=== PATIENT | female | born 1940 | race Caucasian/White ===

== ENCOUNTER 2020-03-25 11:50 | Inpatient (IN) | payer MEDICARE ==
[~2020-03-25] VITALS: Ht 162.6 cm; Wt 63.6 kg
[~2020-03-25 11:50] MED LIST: HYDR500C2 PO; LOSA50TA64 PO; ONDA4TAB59 PO; SITA1TAB2 PO; SITA1TAB6 PO; ZOC40T PO
--- NOTE | 2020-03-25 12:02 | NUR ---
STROKE RN BYRON AT BEDSIDE, PATIENT TO CT AT THIS TIME.
[2020-03-25 12:10] LABS: BASOPHILS # (AUTO) 0.1 X10'3 (0-0.2); BASOPHILS % (AUTO) 0.9 % (0-1); EOSINOPHILS # (AUTO) 0.1 X10'3 (0-0.9); HEMATOCRIT 44.5 % (35.0-45.0); HEMOGLOBIN 13.9 g/dl (12.0-16.0); LYMPHOCYTES # (AUTO) 1.1 X10'3 (1.1-4.8); LYMPHOCYTES % (AUTO) 17.2 % (21-51); MEAN CORPUSCULAR HEMOGLOBIN 26.9 PG (27.0-31.0); MEAN CORPUSCULAR HGB CONC 31.3 g/dL (33.0-36.5); MEAN CORPUSCULAR VOLUME 85.9 FL (78-98); MEAN PLATELET VOLUME 7.8 FL (7.4-10.4); MONOCYTES # (AUTO) 0.3 X10'3 (0-0.9); MONOCYTES % (AUTO) 4.2 % (2-12); NEUTROPHILS # (AUTO) 4.9 X10'3 (1.8-7.7); NEUTROPHILS % (AUTO) 76.7 % (42-75); PLATELET COUNT 261 X10'3 (140-440); RED BLOOD COUNT 5.17 X10'6 (4.20-5.60); RED CELL DISTRIBUTION WIDTH 19.9 % (11.5-14.5); WHITE BLOOD COUNT 6.4 X10'3 (4.5-11.0)
[2020-03-25 12:22] LABS: PARTIAL THROMBOPLASTIN TIME 30 SECONDS (22-32)
[2020-03-25 12:23] LABS: ALANINE AMINOTRANSFERASE 14 U/L (12-78); ALBUMIN 4.1 G/DL (3.4-5.0); ALBUMIN/GLOBULIN RATIO 1.2 (1.1-1.5); ALKALINE PHOSPHATASE 60 IU/L (46-116); ANION GAP 12 (8-16); ASPARTATE AMINO TRANSFERASE 19 U/L (10-37); BILIRUBIN,TOTAL 0.6 MG/DL (0.1-1.0); BLOOD UREA NITROGEN 24 MG/DL (7-18); BUN/CREATININE RATIO 21.6 (6.6-38.0); CALCIUM 8.8 MG/DL (8.5-10.1); CHLORIDE 105 MMOL/L (99-107); CREATININE 1.11 MG/DL (0.40-0.90); GLUCOSE 193 MG/DL (70-104); POTASSIUM 4.1 MMOL/L (3.5-5.1); SODIUM 141 MMOL/L (135-145); TOTAL CARBON DIOXIDE 23.6 MMOL/L (24-32); TOTAL PROTEIN 7.6 G/DL (6.4-8.2); eGFR 47 ML/MIN
[2020-03-25 12:26] LABS: TROPONIN I < 0.04 NG/ML (0.0-0.05)
[2020-03-25 12:42] LABS: ANISOCYTOSIS 2+; PLATELET ESTIMATE NORMAL
[2020-03-25] MEDS ORDERED: bisacodyl 10mg suppository rectal RC PRN (13:05)
[2020-03-25] MEDS ORDERED: magnesium Cl slow-release 64mg tablet PO PRN (13:05)
[2020-03-25] MEDS ORDERED: magnesium 2GM in 50ml NS 50 ML IV PRN (13:05)
[2020-03-25] MEDS ORDERED: HYDROcodone/acetaminophen 5mg/325mg tablet PO PRN (13:05)
[2020-03-25] MEDS ORDERED: magnesium 4gm in 100ml NS 100 ML IV PRN (13:05)
[2020-03-25] MEDS ORDERED: potassium CL 10mEq/100ml bag 100 ML IV PRN ×2 (13:05)
[2020-03-25] MEDS ORDERED: acetaminophen 650mg rectal suppository RC PRN (13:05)
[2020-03-25] MEDS ORDERED: acetaminophen 325mg tablet PO PRN ×2 (13:05)
[2020-03-25] MEDS ORDERED: aspirin 325mg tablet PO ONE (13:05)
[2020-03-25] MEDS ORDERED: ondansetron/PF 4mg/2ml inj IV PRN (13:05)
[2020-03-25] MEDS ORDERED: magnesium hydroxide 30ml (MOM) UD suspension PO PRN (13:05)
[2020-03-25] MEDS ORDERED: potassium Cl 20 mEq SR tablet PO PRN ×2 (13:05)
[2020-03-25] MEDS ORDERED: HYDROcodone/acetaminophen 10/325mg tab PO PRN (13:05)
[2020-03-25] MEDS ORDERED: mag hydrox/Alum hydrox/simeth 30ml oral suspension PO PRN (13:05)
[2020-03-25] MEDS ORDERED: metoclopramide 5 mg/ml inj IV PRN (13:05)
[2020-03-25] MEDS ORDERED: METF-438 PO (13:32)
[2020-03-25] MEDS ORDERED: HYDR25TA4 PO (13:32)
[2020-03-25] MEDS ORDERED: EMPA25TA PO (13:36)
[2020-03-25] MEDS ORDERED: GABA300C PO (13:37)
[2020-03-25] MEDS ORDERED: HYDR500C18 PO (13:39)
[2020-03-25] MEDS ORDERED: SERT50TA10 PO (13:41)
[2020-03-25] MEDS ORDERED: LANTUS SQ (13:42)
[2020-03-25] MEDS ORDERED: iohexol 350MG/ML 100ml bottle IV ONE (13:55)
[2020-03-25 14:12] LABS: HEMOGLOBIN A1C 6.9 % (4.5-6.2)
[2020-03-25 14:24] LABS: C-REACTIVE PROTEIN < 0.05 MG/DL (0.0-0.5)
[2020-03-25] MEDS: normal saline 1000ml 1,000 ML IV SCH (15:15)
[2020-03-25 15:23] VITALS: BP 156/74
--- NOTE | 2020-03-25 15:39 | NUR ---
pr arrived to 4009A from ER. VSS, pt connected to tele monitor. Pt denies pain. Right sided weakness noted. pt seen by Dr. Armando at bedside assessing pt. a/ox3.
[2020-03-25 18:00] VITALS: BP 143/70
[2020-03-25] MEDS: K and/or MAG REPLACEMENT MC SCH (19:13)
[2020-03-25] MEDS: gabapentin 300mg capsule PO SCH (20:24)
[2020-03-25] MEDS: sertraline 50mg tablet PO SCH (20:24)
[2020-03-25] MEDS ORDERED: temazepam 15mg capsule PO PRN (21:00)
[2020-03-25] MEDS ORDERED: atorvastatin 20mg tablet PO SCH (21:00)
[2020-03-25 22:00] VITALS: BP_SYST 112; BP_SYST 130; BP_DIAS 57; BP_DIAS 65
--- NOTE | 2020-03-25 22:19 | NUR ---
PT HAS NOTABLE RIGHT SIDE NEGLECT. SHE WAS HOLDING HER WATER AND POURING IT IN THE BED, WITHOUT NOTICE. SHE ALSO WAS UNABLE TO DISTINGUISH HER RIGHT HAND WHEN TAKING HER MEDICATIONS. SHE WAS HOLDING HER WATER IN HER RIGHT HAND AND ASKED ME FOR HER WATER.
[2020-03-26 02:00] VITALS: BP 139/58
[2020-03-26 06:00] VITALS: BP 137/61
[2020-03-26 06:30] LABS: BASOPHILS % (AUTO) 0.7 % (0-1); EOSINOPHILS # (AUTO) 0.1 X10'3 (0-0.9); EOSINOPHILS % (AUTO) 1.6 % (0-6); HEMATOCRIT 42.5 % (35.0-45.0); HEMOGLOBIN 13.3 g/dl (12.0-16.0); LYMPHOCYTES % (AUTO) 15.7 % (21-51); MEAN CORPUSCULAR HGB CONC 31.3 g/dL (33.0-36.5); MEAN CORPUSCULAR VOLUME 86.3 FL (78-98); MEAN PLATELET VOLUME 7.8 FL (7.4-10.4); MONOCYTES # (AUTO) 0.4 X10'3 (0-0.9); MONOCYTES % (AUTO) 6.6 % (2-12); NEUTROPHILS # (AUTO) 4.8 X10'3 (1.8-7.7); NEUTROPHILS % (AUTO) 75.4 % (42-75); PLATELET COUNT 218 X10'3 (140-440); RED BLOOD COUNT 4.92 X10'6 (4.20-5.60); RED CELL DISTRIBUTION WIDTH 20.7 % (11.5-14.5); WHITE BLOOD COUNT 6.4 X10'3 (4.5-11.0)
--- NOTE | 2020-03-26 06:36 | NUR ---
REPORT GIVEN TO RAVIN BERGMAN.
[2020-03-26 06:45] LABS: ALANINE AMINOTRANSFERASE 16 U/L (12-78); ALBUMIN 3.6 G/DL (3.4-5.0); ALBUMIN/GLOBULIN RATIO 1.1 (1.1-1.5); ALKALINE PHOSPHATASE 56 IU/L (46-116); ANION GAP 12 (8-16); ASPARTATE AMINO TRANSFERASE 17 U/L (10-37); BILIRUBIN,TOTAL 0.5 MG/DL (0.1-1.0); BLOOD UREA NITROGEN 18 MG/DL (7-18); BUN/CREATININE RATIO 20.2 (6.6-38.0); CALCIUM 8.7 MG/DL (8.5-10.1); CHLORIDE 108 MMOL/L (99-107); CHOL/HDL RATIO 4.1 (0.00-4.99); CHOLESTEROL 147 MG/DL (0-200); CREATININE 0.89 MG/DL (0.40-0.90); GLUCOSE 163 MG/DL (70-104); HDL CHOLESTEROL 36 MG/DL (35-60); LDL CHOLESTEROL 89 MG/DL (50-100); MAGNESIUM 2.1 MG/DL (1.5-2.4); SODIUM 143 MMOL/L (135-145); TOTAL CARBON DIOXIDE 22.9 MMOL/L (24-32); TOTAL PROTEIN 6.8 G/DL (6.4-8.2); TRIGLYCERIDES 163 MG/DL (20-135); eGFR 61 ML/MIN
[2020-03-26] MEDS: K and/or MAG REPLACEMENT MC SCH ×2 (08:00→19:28)
[2020-03-26] MEDS: gabapentin 300mg capsule PO SCH ×2 (08:19→20:08)
[2020-03-26] MEDS: aspirin 81mg tablet.DR PO SCH (08:20)
[2020-03-26] MEDS: Empagliflozin (Jardiance) 25 MG TAB PO SCH (08:22)
[2020-03-26] MEDS: enoxaparin 40mg/0.4ml syringe SQ SCH (08:25)
[2020-03-26 10:00] VITALS: BP 136/57
[2020-03-26 14:00] VITALS: BP 126/72
[2020-03-26] MEDS: clopidogrel 75mg tablet PO SCH (17:52)
[2020-03-26 18:00] VITALS: BP 154/71
--- NOTE | 2020-03-26 18:29 | NUR ---
Report to Gretel ALICIA
[2020-03-26] MEDS: normal saline 1000ml 1,000 ML IV SCH ×2 (19:13→19:14)
[2020-03-26] MEDS: sertraline 50mg tablet PO SCH (20:08)
[2020-03-26] MEDS: atorvastatin 20mg tablet PO SCH (20:08)
[2020-03-27 06:00] VITALS: BP 137/71
--- NOTE | 2020-03-27 06:38 | NUR ---
REPORT GIVEN TO RAVIN BERGMAN.
[2020-03-27 07:11] LABS: BASOPHILS # (AUTO) 0.2 X10'3 (0-0.2); EOSINOPHILS # (AUTO) 0.1 X10'3 (0-0.9); HEMOGLOBIN 12.6 g/dl (12.0-16.0); LYMPHOCYTES # (AUTO) 1.4 X10'3 (1.1-4.8); MEAN PLATELET VOLUME 7.8 FL (7.4-10.4); MONOCYTES # (AUTO) 0.4 X10'3 (0-0.9); NEUTROPHILS # (AUTO) 3.6 X10'3 (1.8-7.7); PLATELET COUNT 216 X10'3 (140-440)
[2020-03-27 07:13] LABS: BASOPHILS % (AUTO) 3.1 % (0-1); LYMPHOCYTES % (AUTO) 24.6 % (21-51); MEAN CORPUSCULAR HGB CONC 31.6 g/dL (33.0-36.5); MEAN CORPUSCULAR VOLUME 85.2 FL (78-98); MONOCYTES % (AUTO) 7.3 % (2-12); RED BLOOD COUNT 4.69 X10'6 (4.20-5.60); RED CELL DISTRIBUTION WIDTH 20.8 % (11.5-14.5); WHITE BLOOD COUNT 5.8 X10'3 (4.5-11.0)
[2020-03-27 07:34] LABS: ALANINE AMINOTRANSFERASE 12 U/L (12-78); ALBUMIN 3.4 G/DL (3.4-5.0); ALBUMIN/GLOBULIN RATIO 1.1 (1.1-1.5); ALKALINE PHOSPHATASE 53 IU/L (46-116); ANION GAP 11 (8-16); ASPARTATE AMINO TRANSFERASE 16 U/L (10-37); BILIRUBIN,TOTAL 0.4 MG/DL (0.1-1.0); BLOOD UREA NITROGEN 15 MG/DL (7-18); BUN/CREATININE RATIO 17.4 (6.6-38.0); CALCIUM 8.8 MG/DL (8.5-10.1); CHLORIDE 109 MMOL/L (99-107); CREATININE 0.86 MG/DL (0.40-0.90); GLUCOSE 154 MG/DL (70-104); MAGNESIUM 2.1 MG/DL (1.5-2.4); SODIUM 143 MMOL/L (135-145); TOTAL CARBON DIOXIDE 23.1 MMOL/L (24-32); TOTAL PROTEIN 6.4 G/DL (6.4-8.2); eGFR 64 ML/MIN
[2020-03-27] MEDS: enoxaparin 40mg/0.4ml syringe SQ SCH (08:00)
[2020-03-27] MEDS: K and/or MAG REPLACEMENT MC SCH ×2 (08:00→20:00)
[2020-03-27] MEDS: gabapentin 300mg capsule PO SCH ×2 (08:28→20:41)
[2020-03-27] MEDS: clopidogrel 75mg tablet PO SCH (08:28)
[2020-03-27] MEDS: aspirin 81mg tablet.DR PO SCH (08:28)
[2020-03-27] MEDS: Empagliflozin (Jardiance) 25 MG TAB PO SCH (08:29)
[2020-03-27 10:00] VITALS: BP 106/69
[2020-03-27] MEDS ORDERED: ATOR40TA PO (11:08)
[2020-03-27] MEDS ORDERED: ASPI-1071 PO (11:08)
[2020-03-27] MEDS ORDERED: CLOP75TA35 PO (11:08)
[2020-03-27 14:00] VITALS: BP 114/47
--- NOTE | 2020-03-27 18:20 | NUR ---
Report to Marciano ALICIA
--- NOTE | 2020-03-27 18:38 | NUR ---
Patient in room [facility]. I have received report from Trina ALICIA and had the opportunity to ask questions and assume patient care.
[2020-03-27 18:39] VITALS: BP 129/55
[2020-03-27] MEDS: sertraline 50mg tablet PO SCH (20:41)
[2020-03-27] MEDS: atorvastatin 20mg tablet PO SCH (20:42)
[2020-03-27] MEDS: normal saline 1000ml 1,000 ML IV SCH ×2 (20:52→22:47)
[2020-03-27 22:00] VITALS: BP 145/70
[2020-03-28 02:00] VITALS: BP 126/46
[2020-03-28 06:00] VITALS: BP 133/70
--- NOTE | 2020-03-28 06:00 | NUR ---
Patient in room [facility]TH[facility]009. I have received report from Marciano ALICIA and had the opportunity to ask questions and assume patient care.
--- NOTE | 2020-03-28 06:32 | NUR ---
Problems reprioritized. Patient report given, questions answered & plan of care reviewed with Jaci ALICIA.
[2020-03-28] MEDS: clopidogrel 75mg tablet PO SCH (07:47)
[2020-03-28] MEDS: gabapentin 300mg capsule PO SCH (07:47)
[2020-03-28] MEDS: aspirin 81mg tablet.DR PO SCH (07:47)
[2020-03-28 07:48] LABS: BASOPHILS # (AUTO) 0.2 X10'3 (0-0.2); EOSINOPHILS # (AUTO) 0.1 X10'3 (0-0.9); EOSINOPHILS % (AUTO) 2.1 % (0-6); LYMPHOCYTES # (AUTO) 1.2 X10'3 (1.1-4.8); MONOCYTES # (AUTO) 0.4 X10'3 (0-0.9); WHITE BLOOD COUNT 5.9 X10'3 (4.5-11.0)
[2020-03-28] MEDS: Empagliflozin (Jardiance) 25 MG TAB PO SCH (07:48)
[2020-03-28 07:51] LABS: HEMATOCRIT 40.2 % (35.0-45.0); HEMOGLOBIN 12.6 g/dl (12.0-16.0); LYMPHOCYTES % (AUTO) 20.5 % (21-51); MEAN CORPUSCULAR HEMOGLOBIN 26.9 PG (27.0-31.0); MEAN CORPUSCULAR HGB CONC 31.4 g/dL (33.0-36.5); MEAN CORPUSCULAR VOLUME 85.7 FL (78-98); MEAN PLATELET VOLUME 7.6 FL (7.4-10.4); MONOCYTES % (AUTO) 6.6 % (2-12); NEUTROPHILS % (AUTO) 67.8 % (42-75); PLATELET COUNT 243 X10'3 (140-440); RED BLOOD COUNT 4.69 X10'6 (4.20-5.60); RED CELL DISTRIBUTION WIDTH 21.6 % (11.5-14.5)
[2020-03-28] MEDS: K and/or MAG REPLACEMENT MC SCH (08:00)
[2020-03-28] MEDS: enoxaparin 40mg/0.4ml syringe SQ SCH (08:00)
[2020-03-28 08:05] LABS: ALANINE AMINOTRANSFERASE 17 U/L (12-78); ALBUMIN 3.5 G/DL (3.4-5.0); ALBUMIN/GLOBULIN RATIO 1.1 (1.1-1.5); ALKALINE PHOSPHATASE 54 IU/L (46-116); ANION GAP 10 (8-16); ASPARTATE AMINO TRANSFERASE 15 U/L (10-37); BILIRUBIN,TOTAL 0.5 MG/DL (0.1-1.0); BLOOD UREA NITROGEN 17 MG/DL (7-18); BUN/CREATININE RATIO 17.9 (6.6-38.0); CALCIUM 8.7 MG/DL (8.5-10.1); CHLORIDE 109 MMOL/L (99-107); CREATININE 0.95 MG/DL (0.40-0.90); GLUCOSE 168 MG/DL (70-104); MAGNESIUM 2.1 MG/DL (1.5-2.4); POTASSIUM 3.8 MMOL/L (3.5-5.1); SODIUM 144 MMOL/L (135-145); TOTAL CARBON DIOXIDE 24.7 MMOL/L (24-32); TOTAL PROTEIN 6.8 G/DL (6.4-8.2); eGFR 57 ML/MIN
[2020-03-28 08:58] LABS: ANISOCYTOSIS 3+; ELLIPTOCYTES 1+; PLATELET ESTIMATE NORMAL
[2020-03-28 09:02] LABS: POLYCHROMASIA FEW
[2020-03-28 10:00] VITALS: BP 138/53
--- NOTE | 2020-03-28 13:34 | NUR ---
Patient stable for transfer to [facility] with all belongings. IV discontinued and cannula intact.
== END 2020-03-28 12:45 | DRG 66 ==
LOC: ER 11:51 → ED HOLD 13:03 → ORTHO 4S 14:41
PROVIDERS: ADMIT Family Medicine; ATTEND Family Medicine
PROC: B3251ZZ Computerized Tomography (CT Scan) of Bilateral Common Carotid Arteries using Low Osmolar Contrast (ICD-10-PCS; principal; 2020-03-25)
PROC: B32G1ZZ Computerized Tomography (CT Scan) of Bilateral Vertebral Arteries using Low Osmolar Contrast (ICD-10-PCS; 2020-03-25)
PROC: B32R1ZZ Computerized Tomography (CT Scan) of Intracranial Arteries using Low Osmolar Contrast (ICD-10-PCS; 2020-03-25)
PROC: B3281ZZ Computerized Tomography (CT Scan) of Bilateral Internal Carotid Arteries using Low Osmolar Contrast (ICD-10-PCS; 2020-03-25)
DX: I63.9 Cerebral infarction, unspecified (principal); E11.42 Type 2 diabetes mellitus with diabetic polyneuropathy; E78.5 Hyperlipidemia, unspecified; Z60.2 Problems related to living alone; E83.119 Hemochromatosis, unspecified; I10 Essential (primary) hypertension; M48.02 Spinal stenosis, cervical region; G89.29 Other chronic pain; M54.9 Dorsalgia, unspecified; Z79.84 Long term (current) use of oral hypoglycemic drugs; Z79.899 Other long term (current) drug therapy; Z79.02 Long term (current) use of antithrombotics/antiplatelets; Z87.891 Personal history of nicotine dependence; Z79.4 Long term (current) use of insulin; Z79.82 Long term (current) use of aspirin
CPT/HCPCS: 36415; 70450; 70496; 70498; 70551; 71045; 72141; 80053; 80061; 82948; 83036; 83735; 84443; 84484; 85025; 85610; 85651; 85730; 86140; 87081; 92507; 92508; 93005; 93306; 97110; 97116; 97163; 97530; 99285; G0378; J1650; J7030; Q9967